=== PATIENT | female | born 1985 ===

== ENCOUNTER → 2016-11-10 | Outpatient (CLI) | payer BC ==
[~2016-11-10] MED LIST: CITA20TA9 PO; DICY20TA10 PO; FOLI1TAB7 PO; LEVO25TA5 PO; PEDICHW34
== END | disposition home or self-care (01) ==
LOC: C.LABSPEC 14:19
PROVIDERS: ATTEND Obstetrics & Gynecology
DX: O24.410 Gestational diabetes mellitus in pregnancy, diet controlled (principal); O99.283 Endocrine, nutritional and metabolic diseases complicating pregnancy, third trimester

== ENCOUNTER 2016-11-13 01:55 | Inpatient (IN) | payer BC ==
[~2016-11-13] VITALS: Ht 165.1 cm; Wt 134.1 kg
[2016-11-13] MEDS ORDERED: LACTATED RINGER'S 1000ML 1,000 ML IV PRN (02:28)
[2016-11-13] MEDS ORDERED: LACTATED RINGER'S 1000ML 1,000 ML IV SCH (02:28)
[2016-11-13] MEDS ORDERED: PENICILLIN G POTASSIUM IV 3 MU in DEXTROSE 5% 100ML 100 ML IV PRN (02:30)
[2016-11-13 02:33] VITALS: Ht 165.1 cm; Wt 134.1 kg
[2016-11-13] MEDS ORDERED: CITA20TA9 PO (02:33)
[2016-11-13] MEDS ORDERED: LEVO25TA5 PO (02:33)
[2016-11-13] MEDS ORDERED: PEDICHW34 (02:33)
[2016-11-13] MEDS ORDERED: FOLI1TAB7 PO (02:33)
[2016-11-13] MEDS ORDERED: DICY20TA10 PO (02:33)
[2016-11-13] MEDS ORDERED: PENICILLIN G POTASSIUM IV 6 MU in DEXTROSE 5% 250ML 250 ML IV STA (02:40)
[2016-11-13 02:52] LABS: HEMATOCRIT 35.5 % (37-47); MEAN CELL VOLUME 77.3 fL (80-100); MEAN CORPUSCULAR HEMOGLOBIN 24.4 pg (25-34); MEAN CORPUSCULAR HGB CONC 31.5 g/dl (32-36); MEAN PLATELET VOLUME 9.8 fL (7.4-10.4); PLATELET COUNT 216 K/uL (130-400); RED BLOOD COUNT 4.59 M/uL (4.2-5.4); WHITE BLOOD COUNT 14.29 K/uL (4.8-10.8)
[2016-11-13] MEDS ORDERED: FENTANYL CITRATE INJ 50 MCG/1 ML 2 ML VIAL ONE (03:18)
[2016-11-13] MEDS ORDERED: FENTANYL 2MCG/ML ROPIV 1.25MG/ML 100ML BAG EPI ONE (03:18)
[2016-11-13] MEDS ORDERED: BUPIVACAINE 0.25% 30 ML VIAL ONE (03:18)
[2016-11-13] MEDS ORDERED: EpHEDrine SULFATE INJ 50 MG/ML AMP ONE (03:18)
[2016-11-13] MEDS ORDERED: OXYTOCIN 30 UNITS/500ML NSS IV ONE (03:31)
[2016-11-13] MEDS ORDERED: LANOLIN OINT EXT PRN ×2 (03:45)
[2016-11-13] MEDS ORDERED: ACETAMINOPHEN/CODEINE 300/30MG TAB PO PRN ×2 (03:45)
[2016-11-13] MEDS ORDERED: OXYTOCIN 30 UNITS/500ML NSS IV PRN (03:45)
[2016-11-13] MEDS ORDERED: BENZOCAINE 20% AER SPR 82.5 GM CAN EXT PRN (03:45)
[2016-11-13] MEDS ORDERED: HYDROCORTISONE ACETATE 25 MG SUPP PR PRN (03:45)
[2016-11-13] MEDS: ACETAMINOPHEN 325 MG TAB PO PRN ×2 (04:02→21:50)
--- NOTE | 2016-11-13 05:08 | DELIVERY SUMMARY ---
DATE OF OPERATION: 11/13/2016 DELIVERY NOTE: The patient is a 30-year-old 3, para 2-0-0-2 white female who presented at 37 weeks with spontaneous rupture of membranes for clear fluid. She proceeded in spontaneous labor and arrived fully dilated after driving in from [employer]. She pushed effectively over intact perineum for delivery of a viable male . Mouth and nasopharynx were suctioned on the perineum. Rest of the delivered easily and was placed on mother's abdomen for further stimulation and attention. There was vigorous crying and the infant was moving all four limbs. Placenta was expressed intact with the 3-vessel cord. bleeding was controlled with dilute Pitocin. Mother and doing well after delivery. I attest to the content of the Intraoperative Record and any orders documented therein. Any exceptio ns are noted below.
[2016-11-13 05:15] VITALS: BP 153/82; PULSE 74; TEMP 36.7; O2SAT 98
[2016-11-13] MEDS: IBUPROFEN 600 MG TAB PO PRN ×4 (05:49→23:35)
--- NOTE | 2016-11-13 07:48 | Progress Note ---
Subjective Nov 13, 2016. Subjective conversation w/ patient, physical exam, lab review Ambulation: ambulating normally Voiding: no voiding problems Passing Gas: Yes Lochia: Moderate Feeding Type: Bottle Feeding Pain: denies pain Comment: Patient was seen at the bedside. No acute event overnight. Review of Systems Constitutional: No fever Respiratory: No cough, No shortness of breath Cardiac: No chest pain Breast: No breast lump Abdomen: No nausea, No pain, No vomiting Female : No dysuria denies headache Objective Vital Signs Date Time Temp Pulse Resp B/P Pulse Ox O2 Delivery O2 Flow Rate FiO2 11/13/16 05:15 36.7 74 18 153/82 98 Room Air 11/13/16 05:15 Room Air Physical Exam General Appearance: WELL-APPEARING, WD/WN Respiratory/Chest: chest non-tender, lungs clear, normal breath sounds Cardiovascular: regular rate, rhythm Abdomen: normal bowel sounds, non tender, soft Fundus: Firm, Relation to Umbilicus (1-2cm below) Extremities: non-tender, no pedal edema, no calf tenderness Laboratory Results Last 24 Hours Test 11/13/16 02:44 White Blood Count 14.29 K/uL Red Blood Count 4.59 M/uL Hemoglobin 11.2 g/dL Hematocrit 35.5 % Mean Corpuscular Volume 77.3 fL Mean Corpuscular Hemoglobin 24.4 pg Mean Corpuscular Hemoglobin Concent 31.5 g/dl RDW Standard Deviation 43.5 fL RDW Coefficient of Variation 15.4 % Platelet Count 216 K/uL Mean Platelet Volume 9.8 fL Medications Current Inpatient Medications Medications (Trade) Dose Ordered Sig/Aaliyah Route Start Time Stop Time Status Last Admin Dose Admin Lactated Ringer's 1,000 ml @ 125 mls/hr Q8H IV 11/13/16 02:28 11/15/16 02:27 Lactated Ringer's (Lr 1000ml) 1,000 ml @ 999 mls/hr Q1H1M PRN IV 11/13/16 02:28 12/13/16 02:27 11/13/16 03:05 999 MLS/HR Citalopram Hydrobromide (celeXA TAB) 20 mg DAILY PO 11/13/16 08:00 12/13/16 07:59 Dicyclomine HCl (Bentyl Tab) 20 mg TID PO 11/13/16 08:00 12/13/16 07:59 Folic Acid (Folvite Tab) 1 mg DAILY PO 11/13/16 08:00 12/13/16 07:59 Levothyroxine Sodium (Synthroid Tab) 25 mcg DAILYBB PO 11/13/16 07:00 12/13/16 07:29 Oxytocin (Pitocin IV) 30 units UD PRN IV 11/13/16 03:45 12/13/16 03:44 Benzocaine (Dermoplast Aero Spr) 1 appln PRN PRN EXT 11/13/16 03:45 12/13/16 03:44 Hydrocortisone Acetate (Anusol Hc Supp) 25 mg BID PRN RI 11/13/16 03:45 12/13/16 03:44 Lanolin (Lanolin Oint) PRN PRN EXT 11/13/16 03:45 12/13/16 03:44 Prenat Multivit/ [place]/Iron/Folic Ac ( Vitamin Tab) 1 tab DAILY PO 11/13/16 08:00 12/13/16 07:59 Ibuprofen (Motrin Tab) 600 mg Q4H PRN PO 11/13/16 03:45 12/13/16 03:44 11/13/16 05:49 600 MG Acetaminophen (Tylenol Tab) 650 mg Q6H PRN PO 11/13/16 03:45 12/13/16 03:44 11/13/16 04:02 650 MG Acetaminophen/ Codeine Phosphate (Tylenol w/ Codeine #3 Tab) 1 tab Q4H PRN PO 11/13/16 03:45 12/13/16 03:44 Acetaminophen/ Codeine Phosphate (Tylenol w/ Codeine #3 Tab) 2 tab Q4H PRN PO 11/13/16 03:45 12/13/16 03:44 Bisacodyl (Dulcolax Tab) 5 mg 20 PO 11/14/16 20:00 11/14/16 20:01 Docusate Sodium (coLACE CAP) 100 mg BID PO 11/13/16 08:00 12/13/16 07:59 Assessment and Plan Day#: 0 Continue Routine Care: Resident Physician Supervision Note: I interviewed and examined the patient. Discussed with Dr. Littlejohn and agree with findings and plan as documented in the note. Any exceptions or clarifications are listed here: [None] Documented By: Kaylee Adrian A/P: This is a 30 y/o female, , s/p normal vaginal delivery. She is ambulating and clinically stable. Plan: - Vitals signs are reviewed and WNL (Tmax 36.7 ) - Last Hgb is 11.2 - Blood type A-, GBS + (received penicillin), Rubella Immune - Routine care - Encourage ambulation, monitor and control pain with medication as needed , continue with regular diet as tolerated and monitor lochia - Stool softeners and sitz bath recommended - Encourage breast feeding and educate about breast feeding
[2016-11-13] MEDS: DOCUSATE SODIUM 100 MG CAP PO SCH ×2 (07:59→20:20)
[2016-11-13] MEDS: LEVOTHYROXINE 25 MCG TAB PO SCH (07:59)
[2016-11-13 08:00] VITALS: BP 106/73; PULSE 64; TEMP 36.6; O2SAT 99
[2016-11-13] MEDS ORDERED: CITALOPRAM 20 MG TAB PO SCH ×2 (08:00→21:00)
[2016-11-13] MEDS: PRENATAL VITAMIN TAB PO SCH (08:01)
[2016-11-13] MEDS: DICYCLOMINE HCL 20 MG TAB PO SCH ×2 (08:01→21:00)
[2016-11-13 11:55] VITALS: BP 113/76; PULSE 75; TEMP 36.4
[2016-11-13 16:50] VITALS: BP 119/80; PULSE 79; TEMP 36.8
[2016-11-13 20:10] VITALS: BP 117/71; PULSE 76; TEMP 36.5
[2016-11-13] MEDS ORDERED: SUPERCREAM 0.870 % 15GM JAR EXT PRN (22:00)
[2016-11-13 23:30] VITALS: BP 101/66; PULSE 69; TEMP 36.6; O2SAT 100
[2016-11-14 03:30] VITALS: BP 102/73; PULSE 71; TEMP 36.6; O2SAT 98
[2016-11-14 06:27] LABS: HEMATOCRIT 30.2 % (37-47)
[2016-11-14] MEDS: IBUPROFEN 600 MG TAB PO PRN ×2 (06:51→15:24)
[2016-11-14] MEDS: LEVOTHYROXINE 25 MCG TAB PO SCH (06:51)
--- NOTE | 2016-11-14 06:54 | Progress Note ---
Subjective Nov 14, 2016. Subjective conversation w/ patient, physical exam Ambulation: ambulating normally Voiding: no voiding problems Passing Gas: Yes Diet Tolerance: Regular Diet Lochia: Moderate Feeding Type: Bottle Feeding Pain: 6/10 improves with medication Comment: Patient was seen at the bedside. No acute event overnight. Review of Systems Constitutional: No fever Respiratory: No cough, No shortness of breath Cardiac: No chest pain Breast: No breast lump Abdomen: No nausea, No pain, No vomiting Female : No dysuria denies headache, complains of passing clots. Objective Vital Signs Date Time Temp Pulse Resp B/P Pulse Ox O2 Delivery O2 Flow Rate FiO2 11/14/16 03:30 36.6 71 16 102/73 98 Room Air 11/13/16 23:30 Room Air 11/13/16 23:30 36.6 69 16 101/66 100 Room Air 11/13/16 20:10 36.5 76 18 117/71 Room Air 11/13/16 16:50 36.8 79 18 119/80 Room Air 11/13/16 16:50 Room Air 11/13/16 11:55 36.4 75 20 113/76 Room Air 11/13/16 08:00 Room Air 11/13/16 08:00 36.6 64 16 106/73 99 Room Air Physical Exam General Appearance: WELL-APPEARING, WD/WN, obese Respiratory/Chest: chest non-tender, lungs clear, normal breath sounds Cardiovascular: regular rate, rhythm Abdomen: normal bowel sounds, non tender, soft Fundus: Firm, Relation to Umbilicus (2-3cm below) Extremities: non-tender, no calf tenderness, + pedal edema Laboratory Results Last 24 Hours Test 11/14/16 06:00 Hemoglobin 9.6 g/dL Hematocrit 30.2 % Medications Current Inpatient Medications Medications (Trade) Dose Ordered Sig/Aaliyah Route Start Time Stop Time Status Last Admin Dose Admin Lactated Ringer's 1,000 ml @ 125 mls/hr Q8H IV 11/13/16 02:28 11/15/16 02:27 Lactated Ringer's (Lr 1000ml) 1,000 ml @ 999 mls/hr Q1H1M PRN IV 11/13/16 02:28 12/13/16 02:27 11/13/16 03:05 999 MLS/HR Dicyclomine HCl (Bentyl Tab) 20 mg TID PO 11/13/16 08:00 12/13/16 07:59 Folic Acid (Folvite Tab) 1 mg DAILY PO 11/13/16 08:00 12/13/16 07:59 11/13/16 08:01 1 MG Levothyroxine Sodium (Synthroid Tab) 25 mcg DAILYBB PO 11/13/16 07:00 12/13/16 07:29 11/13/16 07:59 25 MCG Oxytocin (Pitocin IV) 30 units UD PRN IV 11/13/16 03:45 12/13/16 03:44 Benzocaine (Dermoplast Aero Spr) 1 appln PRN PRN EXT 11/13/16 03:45 12/13/16 03:44 Hydrocortisone Acetate (Anusol Hc Supp) 25 mg BID PRN SD 11/13/16 03:45 12/13/16 03:44 Lanolin (Lanolin Oint) PRN PRN EXT 11/13/16 03:45 12/13/16 03:44 Prenat Multivit/ [place]/Iron/Folic Ac ( Vitamin Tab) 1 tab DAILY PO 11/13/16 08:00 12/13/16 07:59 Ibuprofen (Motrin Tab) 600 mg Q4H PRN PO 11/13/16 03:45 12/13/16 03:44 11/13/16 23:35 600 MG Acetaminophen (Tylenol Tab) 650 mg Q6H PRN PO 11/13/16 03:45 12/13/16 03:44 11/13/16 21:50 650 MG Acetaminophen/ Codeine Phosphate (Tylenol w/ Codeine #3 Tab) 1 tab Q4H PRN PO 11/13/16 03:45 12/13/16 03:44 Acetaminophen/ Codeine Phosphate (Tylenol w/ Codeine #3 Tab) 2 tab Q4H PRN PO 11/13/16 03:45 12/13/16 03:44 Bisacodyl (Dulcolax Tab) 5 mg 20 PO 11/14/16 20:00 11/14/16 20:01 Docusate Sodium (coLACE CAP) 100 mg BID PO 11/13/16 08:00 12/13/16 07:59 11/13/16 20:20 100 MG Citalopram Hydrobromide (celeXA TAB) 20 mg HS PO 11/13/16 21:00 12/13/16 20:59 11/13/16 20:20 20 MG Cocaine HCl (Supercream 0.870% Cr) 15 gm Q2H PRN EXT 11/13/16 22:00 11/27/16 21:59 11/13/16 23:58 15 GM Assessment and Plan Day#: 1 Continue Routine Care: Resident Physician Supervision Note: I interviewed and examined the patient. Discussed with Dr. Fields and agree with findings and plan as documented in the note. Any exceptions or clarifications are listed here: [None] Documented By: Ofelia Tidwell A/P: This is a 30 y/o female, , s/p normal vaginal delivery. She is ambulating and clinically stable. Plan: - Vitals signs are reviewed and WNL (Tmax 36.8 ) - Last Hgb is 11.2 - Blood type A-, antibody +, GBS +, Rubella Immune - Routine care - Encourage ambulation, monitor and control pain with medication as needed , continue with regular diet as tolerated and monitor lochia - Stool softeners and sitz bath recommended - Encourage breast feeding and educate about breast feeding
[2016-11-14 08:15] VITALS: BP 129/78; PULSE 74; TEMP 36.5
[2016-11-14] MEDS: PRENATAL VITAMIN TAB PO SCH (08:37)
[2016-11-14] MEDS: DICYCLOMINE HCL 20 MG TAB PO SCH ×3 (08:37→14:00)
[2016-11-14] MEDS: DOCUSATE SODIUM 100 MG CAP PO SCH (08:37)
[2016-11-14] MEDS: ACETAMINOPHEN 325 MG TAB PO PRN ×2 (09:03→18:37)
--- NOTE | 2016-11-14 10:42 | Discharge Instructions ---
Discharge Instructions Date of Service Nov 14, 2016. Admission Reason for Admission: 37 Weeks Gestation, Gdm In Third Trimester Discharge Discharge Diagnosis / Problem: s/p normal vaginal delivery Discharge Goals Goal(s): Routine recovery after delivery Medications Continue Dispensed Medications: supercream, dermaplast, tucks, lansinoh Activity Recommendations Activity Limitations: as noted below . Instructions / Follow-Up Instructions / Follow-Up ACTIVITY RECOMMENDATIONS: * Gradual return to full activity over the next 2-3 weeks. * No lifting - nothing heavier than baby over the next 2-3 weeks. * Do not engage in vigorous exercise, sexual activity or sports until cleared by your physician. * Do not drive or operate any motorized equipment until cleared by your physician. * You may shower/bathe daily. MEDICATIONS: For discomfort or pain, you may use Acetaminophen (Tylenol), Ibuprofen (Advil), or Naproxen (Aleve) following the package directions. For constipation you may use Colace following the package directions. BREAST CARE: If you are not breast feeding: * Wear a supportive bra 24 hours a day for one to two weeks. * Avoid stimulating your breasts and nipples as much as possible during the first few weeks after delivery. * When taking a shower, have the warm water hit your back, not breasts. * When your breasts feel full, apply ice packs. Usually three to four times a day helps ease the discomfort. * Take a mild pain medication (Tylenol / Motrin) when you are uncomfortable. If breast feeding: * Use breast milk to lubricate nipples. Lansinoh cream may be used for sore nipples. You do not need to remove cream prior to breast feeding. If using a different brand of cream, check the label for directions regarding removal of cream prior to nursing. * Wear a supportive bra. * If having problems with breasts or breast feeding, call a beverage sales consultant or your health care provider. EPISIOTOMY CARE: After delivery, if you have an episiotomy (stitches), the following steps will ease discomfort and aid healing. * For the first 24 hours after delivery, place ice packs next to your episiotomy to help reduce swelling. * After the first 24 hour-period, sitz baths, either portable or in the tub, are suggested. A shower with a shower arm sprayed over the episiotomy may be comforting. * [place] care should be done after each voiding and bowel movement. Squirt warm water from a plastic bottle over the perineum (region of the body between the anus and urinary opening) and pat dry. * Use Dermoplast to ease discomfort. Shake container. [place] directly over the episiotomy. Place a Tucks on a clean sanitary pad next to your episiotomy. SPECIAL CARE INSTRUCTIONS: When you are discharged from the hospital, it is important for you to follow the instructions listed below: * During the first week at home, you should be able to care for yourself and your baby. In addition, the usual light household activities are encouraged. * Limit your activities to the way you feel. Do not try to clean the house or move furniture. Be sensible. * If you actively engage in sports and have done so up until the time of your delivery, you may resume these activities as soon as you feel able. This may take up to one month or even longer. Use good judgment. * Continue to take your vitamins for at least six weeks after the of your baby. * Your diet need not be limited unless you were on a special diet before your delivery. Breast-feeding mothers need around 2500 calories per day and at least 64-80 ounces of fluid per day (8 to 10 glasses). * You should eat foods from the four major food groups. Crash diets or fad diets are to be avoided. Eating lean meats, fresh fruits and vegetables, low-fat dairy products, high fiber foods and a regular exercise program, will help you get back to your pre- weight without putting your health at risk. * Constipation is sometimes a problem after delivery. Take a mild laxative as needed. If breast feeding, Milk of Magnesia is acceptable to use. You may use a suppository or Fleets enema if no episiotomy. * A daily shower or tub bath is suggested. Be sure to thoroughly and gently dry the perineum. * A bloody vaginal discharge will usually continue until around four weeks post . A small amount of bleeding may continue for as long as six weeks. Vaginal discharge changes from the bright red bleeding after delivery to pink then brownish and finally yellowish-pink before becoming white and disappearing. * Bleeding may increase with activity. Your first period may come in 4-8 weeks. If you are breast feeding, your period may be delayed even longer. * [place] (sex) can begin whenever both you and your partner feel comfortable and do not have any form of genital infection. It is recommended that you wait at least six weeks for internal and external healing to occur. If you have questions, please talk to your health care practitioner. A condom should be used to prevent infection and . * Foreplay, gentle intercourse and lubrication is very important the first several times to prevent pain. A water-based lubricant such as K-Y jelly or Astroglide may be used. * If you have RH negative blood and your baby is RH positive, you will receive RHOGAM by injection prior to discharge. The nurse will give you a card to keep with you that has the date and place that you received RHOGAM after delivery. * During your care, you had a Rubella screen done to check for the presence of rubella antibodies in your blood. If your test was negative, you will receive a Rubella vaccine prior to discharge. This vaccine may cause a fever, soreness at the injection site and flu-like symptoms. If these symptoms persist, notify your health care practitioner. is not advised for one month after a Rubella vaccine. * Verbalizes understanding of car seat law as reviewed with patient nursing. * Car Seat hand-out given and reviewed with patient by nursing. * Shaken baby information reviewed with patient by nursing. Call you doctor if: * Heavy bleeding (saturating several pads an hour) or passing clots the size of your fist. * A fever >101 degrees F (38.3 degrees C) on two occasions four hours apart and /or chills. * Unusual pain in the pelvic or vaginal areas. * "Baby Blues" lasting longer than two weeks. If you have any questions or concerns, call your health care practitioner at . FOLLOW UP VISIT: * Please call the office at to schedule a 6 week examination. It is important you keep this appointment. It is important for you to make arrangements for either yearly or twice yearly check-ups thereafter. Current Hospital Diet Patient's current hospital diet: Regular OB Diet Discharge Diet Recommended Diet: Regular Diet Pending Studies Studies pending at discharge: no Medical Emergencies . Who to Call and When: Medical Emergencies: If at any time you feel your situation is an emergency, please call 911 immediately. . Non-Emergent Contact Non-Emergency issues call your: Auto Carrier Driver Call Non-Emergent contact if: you have a fever, temperature is above 101 . . "Provider Documentation" section prepared by Catherine Fields. . VTE Core Measure Inpt VTE Proph given/why not?: Treatment not indicated
[2016-11-14 16:00] VITALS: BP 118/68; PULSE 74; TEMP 36.4
[2016-11-14 19:30] VITALS: BP_DIAS 68; PULSE 74; TEMP 36.4
[2016-11-14] MEDS ORDERED: BISACODYL 5 MG TABEC PO SCH (20:00)
== END 2016-11-14 19:45 | disposition home or self-care (01) | DRG 775 ==
LOC: C.OPB 01:55 → C.LD 01:56 → C.OPB 02:30 → C.MS4N 05:11
PROVIDERS: ADMIT Obstetrics & Gynecology; ATTEND Obstetrics & Gynecology
PROC: 10E0XZZ Delivery of Products of Conception, External Approach (ICD-10-PCS; principal; 2016-11-13)
DX: O99.824 Streptococcus B carrier state complicating childbirth (principal); Z37.0 Single live birth; Z3A.37 37 weeks gestation of pregnancy